=== PATIENT | female | born 1995 | race Caucasian/White ===

== ENCOUNTER 2017-09-12 11:25 | Observation (INO) | payer OTHER ==
[2017-09-12] MEDS ORDERED: ONDANSETRON 4 MG/2 ML VIAL ONE ×2 (11:34→14:38)
[2017-09-12] MEDS ORDERED: ONDANSETRON 4 MG/2 ML VIAL IVP ONE (11:36)
[2017-09-12] MEDS ORDERED: NS 1,000 ML IV ONE ×3 (11:37→13:06)
[2017-09-12 11:55] LABS: PLATELET COUNT 275 10^3/uL (150-400)
--- NOTE | 2017-09-12 12:03 | EDPHY ---
H & P Stated Complaint: periumbilical abd pain n/v/d since 0400 Time Seen by Provider: 09/12/17 11:50 HPI/ROS: CHIEF COMPLAINT: Abdominal pain nausea vomiting diarrhea HISTORY OF PRESENT ILLNESS: 22-year-old female complaining of periumbilical and right lower quadrant abdominal pain since 4:00 a.m. Today with associated not vomiting and diarrhea. Positive alcohol use last evening. No melena or hematochezia pain. No antecedent symptoms. No back or flank pain. No fever or chills. Last oral intake at 3:30 a.m. Today. REVIEW OF SYSTEMS: A ten point review of systems was performed and is negative with the exception of the items mentioned in the HPI PAST MEDICAL & SURGICAL HISTORY: No pertinent medical or surgical history SOCIAL HISTORY: Positive for alcohol use last evening PHYSICAL EXAM (Prior to examination, patient consented to physical exam, hands were washed and my usual and customary physical exam procedures followed) 1) GENERAL: Well-developed, well-nourished, alert and oriented. Appears uncomfortable. 2) HEAD: Normocephalic, atraumatic 3) HEENT: Pupils equal, round, reactive to light bilaterally. Sclera anicteric. Nasopharynx, oropharynx, clear, no lesions. Moist mucous membranes Ears bilaterally with normal tympanic membranes. 4) NECK: Full range of motion, no meningeal signs. 5) LUNGS: Clear auscultation bilaterally, no wheezes, no rhonchi, no retractions. 6) HEART: Regular rate and rhythm, no murmur, no heave, no gallop. 7) ABDOMEN: Guarding abdomen tender to palpation right lower quadrant. Negative Pat's negative peritoneal sign negative epigastric pain., 8) MUSCULOSKELETAL: Moving all extremities, no focal areas of tenderness, no obvious trauma. No peripheral edema or discoloration. 9) BACK: No CVA tenderness, no midline vertebral tenderness, no fluctuance, no step-off, no obvious trauma, no visual or palpable abnormality. 10) SKIN: No rash, no petechiae. 11) Psychiatric: Patient is oriented X 3, there is no agitation. DIFFERENTIAL DIAGNOSIS: My differential diagnosis includes, but is not limited to, acute appendicitis, acute cholecystitis, bowel obstruction, acute pancreatitis, ovarian torsion, ectopic , gastritis and urinary tract infection. The patient understands that this diagnosis is provisional and can never be 100% accurate. This is a partial list of diagnoses considered. These considerations are based on history, physical exam, past history and reassessment. - Personal History LMP (Females 10-55): 22-28 Days Ago Current Tetanus/Diphtheria Vaccine: Yes - Medical/Surgical History Hx Asthma: No Hx Chronic Respiratory Disease: No Hx Diabetes: No Hx Cardiac Disease: No Hx Renal Disease: No Hx Cirrhosis: No Hx Alcoholism: No Hx HIV/AIDS: No Hx Splenectomy or Spleen Trauma: No Other PMH: denies - Social History Smoking Status: Never smoked Constitutional: Initial Vital Signs Temperature (C) 36.7 C 09/12/17 11:26 Heart Rate 67 09/12/17 11:26 Respiratory Rate 17 09/12/17 11:26 Blood Pressure 113/73 09/12/17 11:26 O2 Sat (%) 96 09/12/17 11:26 O2 Delivery Mode Room Air Allergies/Adverse Reactions: No Known Allergies Allergy (Unverified 09/12/17 11:26) Home Medications: Medication Instructions Recorded Acetaminophen [Tylenol ES 500 mg 1,000 mg PO Q8H tab 09/13/17 (*)] HYDROmorphone HCL/NS 2 - 4 mg PO Q4HRS PRN #5 syr 09/13/17 [HYDROmorphone] Ketorolac Tromethamine [Toradol 15 10 mg PO Q6HRS #12 vial 09/13/17 mg/ml Inj (*)] Medical Decision Making ED Course/Re-evaluation: 12:03 p.m.: Will obtain ultrasonographic imaging of the abdomen and pelvis. Patient remains NPO since 3:30 a.m. Today. 12:58 p.m.: Ultrasonographic imaging interpreted by radiologist conveyed to me at this time is positive for appendicitis. Patient will be given IV ceftriaxone and Flagyl, surgeon will be contacted. Care of patient under supervision of secondary supervising physician Dr Abreu with whom I discused case . 1:02 p.m.: Phone consultation with Dr. Odom who will evaluate patient plan for operating room - Data Points Laboratory Results: Laboratory Results 09/12/17 11:40 09/12/17 11:40 Medications Given: Discontinued Medications Acetaminophen (Tylenol) 1,000 mg PO Q8H [facility] Stop: 03/11/18 15:44 Last Admin: 09/13/17 15:16 Dose: 1,000 mg Cefazolin Sodium (Ancef Syringe) Confirm Administered Dose 1 gm .ROUTE .STK-MED ONE Stop: 09/12/17 13:25 Last Admin: 09/12/17 14:41 Dose: 1 gm Fentanyl (Sublimaze) 25 - 100 mcg IVP Q5M PRN PRN Reason: PACU, IMMEDIATE Pain control Stop: 09/12/17 15:42 Last Admin: 09/12/17 16:02 Dose: 25 mcg Heparin Sodium (Porcine) (Heparin Sc Injection) Confirm Administered Dose 5,000 unit .ROUTE .STK-MED ONE Stop: 09/12/17 13:25 Last Admin: 09/12/17 14:41 Dose: 5,000 unit Hydromorphone HCl (Dilaudid) 1 mg IVP EDNOW ONE Stop: 09/12/17 12:54 Last Admin: 09/12/17 12:55 Dose: 1 mg Hydromorphone/Sodium Chloride (Hydromorphone) 0.2 - 0.4 mg IVP Q1HR PRN PRN Reason: Pain, Breakthrough Stop: 09/22/17 15:38 Last Admin: 09/13/17 15:16 Dose: 0.2 mg Sodium Chloride (Ns) 1,000 mls @ 0 mls/hr IV ONCE ONE PRN Reason: Wide Open Stop: 09/12/17 11:38 Last Admin: 09/12/17 11:39 Dose: 1,000 mls Sodium Chloride (Ns) 1,000 mls @ 0 mls/hr IV ONCE ONE PRN Reason: Wide Open Stop: 09/12/17 12:04 Last Admin: 09/12/17 12:14 Dose: 1,000 mls Ceftriaxone Sodium/Dextrose (Rocephin 1 Gm (Premix)) 50 mls @ 100 mls/hr IV EDNOW ONE PRN Reason: Protocol Stop: 09/12/17 13:27 Last Admin: 09/12/17 13:01 Dose: 50 mls Metronidazole/Sodium Chloride (Flagyl 500 Mg (Premix)) 100 mls @ 100 mls/hr IV EDNOW ONE PRN Reason: Protocol Stop: 09/12/17 13:57 Last Admin: 09/12/17 13:03 Dose: 100 mls Lactated Ringer's (Lr) 1,000 mls @ 0 mls/hr IV ONCE ONE; TKO PRN Reason: Protocol Stop: 09/12/17 14:24 Last Admin: 09/12/17 17:23 Dose: Not Given Lactated Ringer's (Lr) 1,000 mls @ 100 mls/hr IV CONT AYDIN Stop: 03/11/18 15:59 Last Admin: 09/13/17 04:11 Dose: 1,000 mls Ketorolac Tromethamine (Toradol) 30 mg IVP Q6HRS AYDIN Stop: 09/17/17 17:59 Last Admin: 09/13/17 11:51 Dose: 30 mg Morphine Sulfate (Morphine) 4 mg IVP EDNOW ONE Stop: 09/12/17 12:04 Last Admin: 09/12/17 12:14 Dose: 4 mg Ondansetron HCl (Zofran) 4 mg IVP EDNOW ONE Stop: 09/12/17 11:37 Last Admin: 09/12/17 11:37 Dose: 4 mg Ondansetron HCl (Zofran) 4 mg IVP Q4HRS PRN PRN Reason: *Nausea &/or Vomiting Stop: 09/13/17 15:38 Last Admin: 09/12/17 18:02 Dose: 4 mg Departure - Departure Disposition: [facility] Acute Clinical Impression: Acute appendicitis Qualifiers: Acute appendicitis type: with localized peritonitis Qualified Code(s): K35.3 - Acute appendicitis with localized peritonitis Condition: Good
[2017-09-12] MEDS ORDERED: HYDROmorphONE/DILAUDID 1 MG/ML INJ IVP ONE (12:53)
[2017-09-12] MEDS ORDERED: HYDROmorphONE/DILAUDID 2 MG/ML INJ ONE (12:54)
[2017-09-12] MEDS ORDERED: ceFAZolin 1 GM/5 ML SYR ONE (13:24)
[2017-09-12] MEDS ORDERED: HEPARIN 5,000 UNIT/0.5 ML SYR ONE (13:24)
[2017-09-12] MEDS ORDERED: PROPOFOL 200 MG/20 ML VIAL ONE ×2 (14:15)
[2017-09-12] MEDS ORDERED: fentaNYL 100 MCG/2 ML INJ ONE ×2 (14:15→15:41)
[2017-09-12] MEDS ORDERED: MIDAZOLAM 2 MG/2 ML VIAL ONE ×2 (14:15→14:37)
[2017-09-12] MEDS ORDERED: LR 1,000 ML IV ONE (14:23)
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
[2017-09-12] MEDS ORDERED: SUGAMMADEX SODIUM 200 MG/2 ML VIAL IVP ONE (14:38)
[2017-09-12] MEDS ORDERED: KETOROLAC 30 MG/1 ML SDV ONE (14:38)
[2017-09-12] MEDS ORDERED: RANITIDINE 50 MG/2 ML VIAL ONE (14:38)
[2017-09-12] MEDS ORDERED: ROCURONIUM 50 MG/5 ML VIAL ONE (14:38)
[2017-09-12] MEDS ORDERED: METOCLOPRAMIDE 10 MG/2 ML VIAL ONE (14:38)
[2017-09-12] MEDS ORDERED: LIDOCAINE 2% 5 ML SDV ONE (14:38)
[2017-09-12] MEDS ORDERED: MEPERIDINE 25 MG/ML SYR IVP PRN (14:41)
[2017-09-12] MEDS ORDERED: ALBUTEROL 3 ML DEYVIAL IH PRN (14:41)
[2017-09-12] MEDS ORDERED: METOCLOPRAMIDE 10 MG/2 ML VIAL IVP PRN (14:41)
[2017-09-12] MEDS ORDERED: DIAZEPAM 5 MG/ML 1 ML SYR IVP PRN (14:41)
[2017-09-12] MEDS ORDERED: NALOXONE HCL 0.4 MG/ML INJ IVP PRN (14:41)
[2017-09-12] MEDS ORDERED: LR 500 ML IV PRN (14:41)
[2017-09-12] MEDS ORDERED: ONDANSETRON 4 MG/2 ML VIAL IVP PRN ×2 (14:41→15:39)
[2017-09-12] MEDS ORDERED: PROMETHAZINE HCL 25 MG/ML INJ IVP PRN (14:41)
[2017-09-12] MEDS ORDERED: DEXAMETHASONE 4 MG/ML VIAL IVP PRN (14:41)
--- NOTE | 2017-09-12 14:41 | PDANEPAE ---
ANE Past Medical History - Pulmonary History Hx Oxygen in Use at Home: No Hx Sleep Apnea: No - Endocrine History Hx Diabetes: No ANE Review of Systems Review of Systems: ANE Patient History - Allergies Allergies/Adverse Reactions: No Known Allergies Allergy (Unverified 09/12/17 11:26) - Home Medications Home Medications: NK [No Known Home Meds] 09/12/17 [Last Taken Unknown] - NPO status NPO Since - Liquids (Date): 09/12/17 NPO Since - Liquids (Time): 08:30 NPO Since - Solids (Date): 09/11/17 NPO Since - Solids (Time): 17:00 - Smoking Hx Smoking Status: Never smoked ANE Labs/Vital Signs - Labs Result Diagrams: 09/12/17 11:40 09/12/17 11:40 - Vital Signs Blood Pressure: 121/66 Heart Rate: 75 Respiratory Rate: 16 O2 Sat (%): 99 Height: 175.26 cm Weight: 61.235 kg ANE Physical Exam - Airway Neck exam: FROM Mallampati Score: Class 1 Mouth exam: normal dental/mouth exam - Pulmonary Pulmonary: no respiratory distress, no rales or rhonchi, clear to auscultation - Cardiovascular Cardiovascular: regular rate and rhythym, no murmur, rub, or gallop - ASA Status ASA Status: I, II, E
[2017-09-12] MEDS ORDERED: HYDROmorphone HCL/NS 0.5 MG/ML SYR IVP PRN (15:39)
[2017-09-12] MEDS: fentaNYL 100 MCG/2 ML INJ IVP PRN ×2 (15:43→16:02)
--- NOTE | 2017-09-12 16:02 | POSTOPPROG ---
Post Op Note Date of Operation: 09/12/17 Surgeon: Carlo Odom Anesthesia: GET(General Endotracheal) Pre-op Diagnosis: acute appendicitis Post-op Diagnosis: acute unruptured appendicitis Indication: acute appendicitis Procedure: laparoscopic appendectomy Findings: acute unruptured appendicitis Inf/Abcess present in the surg proc area at time of surgery?: No EBL: Minimal Total fluids administered: 1000 Complications: none Specimen(s): appendix
--- NOTE | 2017-09-12 17:12 | GOP ---
[f rep st] OPERATIVE REPORT DATE OF OPERATION: 09/12/2017 SURGEON: Carlo Odom MD ANESTHESIA: General endotracheal. PREOPERATIVE DIAGNOSIS: Acute appendicitis by ultrasound, laboratories, and physical examination. POSTOPERATIVE DIAGNOSIS: Acute unruptured appendicitis with mesenteric adenitis. PROCEDURE PERFORMED: Laparoscopic appendectomy. FINDINGS: Acute unruptured appendicitis with mesenteric adenitis. INDICATIONS: Acute appendicitis by ultrasound, physical examination, and laboratories. DESCRIPTION OF PROCEDURE: The patient was placed on the operating table in supine position. After induction of adequate general endotracheal anesthesia, the abdomen was carefully prepped and draped. A surgical time-out was carried out and agreed to by all members of the operative team. A curvilinear incision was planned at the umbilicus. Transverse, suprapubic, and oblique left lower quadrant 5 mm incisions were planned. All skin incisions were made sharply. The incision was deepened with Bovie electrocautery. At the infraumbilical curvilinear incision, dissection was continued down to the anterior rectus sheath, which was elevated between 2 Allis clamps. The fascia was divided in the midline. A pursestring of #0 PDS was placed. The peritoneum was entered. An 11-12 mm disposable Fabrice trocar was positioned. Intraabdominal insufflation was carried out to 15 mmHg. She was placed in a 25-degree Trendelenburg position. A 5 mm port was placed through the left lower quadrant incision. A 5 mm port was then placed through the suprapubic incision. She was now rotated 5 degrees to the left. The appendix was easily identified. It was elevated. The mesoappendix was divided with the Harmonic scalpel down to its base on the cecum. The cecum was cleared circumferentially. A 35 mm Endo-TELLO stapler was used to transect the cecum, taking a cuff of tissue with the appendix. The appendix was placed in an EndoCatch bag and delivered via the umbilical port site. Pneumoperitoneum was re-established. Heparin and Ancef-containing irrigant was used. Photographic documentation of the appendix, the stapled resection line, and the right and left ovary was carried out. The small bowel was run for a distance of 3 feet. There is some mesenteric adenitis identified. There was no Meckel diverticulum. The patient tolerated the procedure well. The ports were removed under direct vision. An inverted simple suture of #0 PDS was placed at the midpoint of the infraumbilical midline incision and tied. The pursestring was now tied. The subcutaneous tissue was well irrigated with heparin and Ancef-containing irrigant. The skin was closed at all 3 sites with inverted simple sutures of #4-0 Vicryl. Mastisol and Steri-Strips were placed. Band-Aids were positioned. The patient was transferred to recovery in stable and satisfactory condition. /[id number]/MODL MTDD
[2017-09-12] MEDS: ACETAMINOPHEN 500 MG TAB PO SCH ×2 (17:23→23:30)
[2017-09-12] MEDS: KETOROLAC 15 MG/1 ML SDV IVP SCH ×2 (18:01→23:30)
[2017-09-12] MEDS: LR 1,000 ML IV SCH (18:02)
[2017-09-13] MEDS: LR 1,000 ML IV SCH (04:11)
[2017-09-13] MEDS: KETOROLAC 15 MG/1 ML SDV IVP SCH ×2 (05:02→11:51)
--- NOTE | 2017-09-13 09:22 | SOAPPROG ---
SOAP Progress Note Assessment/Plan: 09/13/17 09:19 POD#! Assessment: doing quite well. passing flatus. eating and pain well controlled Plan: Discharge today Subjective: I'm feeling much better Objective: Vital Signs Temp Pulse Resp BP Pulse Ox 36.4 C 71 16 112/57 L 96 09/13/17 07:25 09/13/17 07:25 09/13/17 07:25 09/13/17 07:25 09/13/17 07:25 09/12/17 09/13/17 09/14/17 05:59 05:59 05:59 Intake Total 5610 Output Total 755 Balance 4855 - Pending Discharge Pending Discharge Within 24 Hours: Yes Pending Discharge Date: 09/13/17 Pending Discharge Time: 11:00 Physical Exam - Physical Exam General Appearance: WD/WN, alert, no apparent distress Neck: non-tender, full range of motion, supple, normal inspection Respiratory: chest non-tender, lungs clear, normal breath sounds Cardiac/Chest: regular rate, rhythm Abdomen: normal bowel sounds, non-tender, soft, other (Incisions clean and dry) Pelvic Exam: deferred Rectal: deferred Back: Normal inspection Skin: normal color, warm/dry Neuro/Psych: no motor/sensory deficits, alert, normal mood/affect, oriented x 3 ICD10 Worksheet Patient Problems: Problems Problem Status Onset Acute appendicitis Acute
[2017-09-13] MEDS: ACETAMINOPHEN 500 MG TAB PO SCH ×2 (09:31→15:16)
--- NOTE | 2017-09-13 11:50 | GDS ---
[f rep st] DISCHARGE SUMMARY DISCHARGE DIAGNOSIS: Acute unruptured appendicitis. CONDITION AT DISCHARGE: Improved. DISPOSITION: Home. SURGERY: Laparoscopic appendectomy. MEDICATIONS: She is to take Tylenol 1000 mg every 8 hours by the clock, Toradol 10 mg p.o. every 6 hours for 12 doses and then substitute Motrin 200 mg every 6 hours. For severe pain, she is given Dilaudid 2 mg, she is to take 1-2 every 4 hours, 5 per dispensed. She will take a multivitamin with zinc with 100 % of the RDAs of zinc, copper and C daily. ACTIVITY: She is not to return to work for 3 weeks. She is to limit activities to gentle walking. She is to shower only. She is to lift less than 10 pounds. She is to keep her Steri-Strips in place. For 3 weeks, she is to watch for signs of infection. Signs of superficial infection would include redness, warmth, swelling, and tenderness. Signs of deep space infection would be fevers, chills, malaise or loss of appetite. FOLLOWUP: She will follow up with Dr. Massimo Moreno, Dr. Mirna Pires, or Dr. Ritesh Soliman in 2 weeks. She will call to make an appointment. HOSPITAL COURSE: The patient was admitted and taken to the operating room where the above-mentioned surgery was undertaken. She has done quite well. On postop day 1, she is passing gas, eating and her pain is well controlled. The incisions are clean and dry. She is set for discharge. /[id number]/MODL MTDD
[2017-09-13 15:40] VITALS: BP 103/63
--- NOTE | 2017-09-16 16:25 | POSTANESTH ---
Post Anesthetic Evaluation Cardiovascular Status: Normal, Stable Respiratory Status: Normal, Stable Level of Consciousness/Mental Status: Can Participate in Eval Pain Control: Adequate, Prn Tx Ordered Nausea/Vomiting Control: Adequate, Prn Tx Ordered Complications Possibly Related to Anesthesia: None Noted
== END 2017-09-13 17:19 | disposition home or self-care (01) ==
LOC: F3E 16:40
PROVIDERS: ADMIT Surgery; ATTEND Surgery
PROC: 0DTJ4ZZ Resection of Appendix, Percutaneous Endoscopic Approach (ICD-10-PCS; principal; 2017-09-12 14:00)
DX: K35.80 Unspecified acute appendicitis (principal)
CPT/HCPCS: 96365; G0378; G0480; J0696; J1170; J1644; J1885; J2250; J2270; J2405; J2704; J2765; J2780; J3010

== ENCOUNTER 2018-05-14 08:53 | Emergency (ER) | payer OTHER ==
[2018-05-14] MEDS ORDERED: NS 1,000 ML IV ONE (09:46)
[2018-05-14] MEDS ORDERED: fentaNYL 100 MCG/2 ML INJ IVP ONE (09:50)
[2018-05-14] MEDS ORDERED: ONDANSETRON 4 MG/2 ML VIAL IVP ONE ×2 (09:50→11:16)
--- NOTE | 2018-05-14 09:56 | EDPHY ---
HPI/HX/ROS/PE/MDM Narrative: CLINICAL IMPRESSION: Left lower quadrant abdominal pain and dysuria ASSESSMENT/PLAN: 22-year-old female presents to the emergency department with 3 days of subjective dysuria, left lower quadrant and left flank pain. Patient arrives tachycardic and hypotensive however vital signs on initial repeat evaluations have all been stable. She is afebrile. Abdomen is tender but without rigidity , guarding or focal peritoneal findings. Urine shows no suggestion of UTI or pyelonephritis. No hematuria. She is not . She has no leukocytosis, renal insufficiency, electrolyte imbalance or metabolic disturbance. Pelvic ultrasound shows no evidence of ovarian torsion, ovarian cyst, TOA, or salpingitis. Pelvic exam with no cervical motion tenderness, adnexal fullness or pain, or abnormal vaginal discharge. Wet prep swabs and STD test were obtained and patient prefers to be discharged home and await call back with these results. I encouraged follow-up with OBGYN which she reports she has scheduled. No clinical suspicion for acute surgical process today. Warning signs return to ED sooner outlined in person and discharge papers. DIFFERENTIAL DX: Abdominal pain includes but not limited to urinary tract infection, pyelonephritis, infection, ectopic , salpingitis, TOA, ovarian torsion, ovarian cyst, endometriosis, uterine fibroids, acute appendicitis, acute diverticulitis, small-bowel obstruction, constipation ED PROCEDURES: See lab results below ED COURSE: Patient reassessed, pain improved. Although she still has pain. Pelvic ultrasound shows no acute abnormality. Labs reassuring, no evidence of UTI or pyelonephritis. Patient now stating that her vagina hurts. Would like pelvic swabs I explained that we will not get results back same day and would be happy to call her. Patient is comfortable with this plan. Abdomen soft with no focal peritoneal findings or suggestion of acute surgical process. CHIEF COMPLAINT: Abdominal pain, nausea, vomiting HPI: 22-year-old female with past medical history of frequent UTIs presents to the emergency department reporting that she had a UTI 3 days ago. She did not seek medical attention for this and has not taken medication for it. Over the last 24 hr she has developed nausea, vomiting, increased left lower pelvic pain and left flank pain. She states she no longer has dysuria or urgency. No abnormal vaginal discharge and she denies risk of STIs. She denies . She finished her menstrual cycle 4 days ago. No intercourse recently or painful intercourse. No known history of abnormal gynecologic conditions including ovarian cyst, endometriosis, uterine fibroids. She reports subjective fevers and chills but does not have a thermometer. She has not seen a primary care provider. She does not regularly treat her urinary tract infections. She reports she does have a history of pyelonephritis in the past. Her only other abdominal surgery has been a prior appendectomy. She reports normal bowel movements with no visible blood. No hematemesis. She has not had any food or liquids since last night secondary to vomiting. PMH: Chronic UTIs Pertinent Past Surgical History: Prior appendectomy Family History: None reported Social History: Nonsmoker, does not drink alcohol regularly REVIEW OF SYSTEMS: All other systems negative Constitutional: Subjective fever and chills, positive appetite change. ENT: No sore throat, congestion, ear pain. Cardiovascular: No chest pain, no palpitations. Respiratory: No cough, no shortness of breath. Gastrointestinal: Positive abdominal pain and vomiting, no diarrhea. Genitourinary: No hematuria, dysuria, positive left-sided flank pain, positive left-sided pelvic pain Musculoskeletal: Positive left-sided back pain, joint swelling, joint pain, myalgias. Skin: No rashes, color change. Neurological: No headache, dizziness, weakness. PHYSICAL EXAM: General Appearance: Alert, oriented, appropriate, cooperative, NAD, well hydrated, non-toxic appearing, initially tachycardic and hypotensive on arrival , repeat vital signs by myself show heart rate and 94, blood pressure at 100 systolic no hypoxia. HEENT: Oropharynx clear is no erythema or exudates, no tonsillar hypertrophy or asymmetry. Dentition without abnormality. Neck: Supple, nontender, no lymphadenopathy, no midline pain, FROM, no meningismus. Respiratory: There are no retractions, lungs are clear to auscultation. Cardiac: Regular rate and rhythm, no murmurs or gallops. Gastrointestinal: Abdomen is soft, tender palpation left lower quadrant radiating to left flank, bowel sounds hypoactive no masses/hernia, no rigidity, guarding or focal peritoneal findings. exam performed with pearl glue drier Lorie in the room. Vaginal canal without abnormality, no cervical motion tenderness, no abnormal vaginal discharge. No adnexal tenderness or mass on bimanual exam. Neurological: Alert and oriented x 3, CN 2-12 grossly intact Skin: Warm, dry, no rashes, no nodules on palpation. Musculoskeletal: Extremities are symmetrical, full range of motion, no tenderness, deformity, swelling, or erythema. Psychiatric: Patient is oriented X 3, there is no agitation. MEDICAL DECISION MAKING: Patient was seen independently. Secondary supervising physician at time of evaluation was Dr. Rice. Diagnosis: Dysuria, left lower quadrant abdominal pain. New, requires workup Summary: See Assessment and Plan for summary of ED visit Clinical lab tests: ordered / reviewed. Independent visualization of images, tracing, or specimens: Yes. Patient Progress: Stable. - Data Points Imaging Results: Imaging Impressions Pelvic/Renal Ultrasound 05/14/18 11:30 Impression: Normal pelvic ultrasound. Findings discussed with Miles Owens 05/14/2018 at 12:51. Laboratory Results: Laboratory Results 05/14/18 09:45 05/14/18 09:45 05/14/18 05/14/18 05/14/18 11:07 09:45 09:45 WBC RBC Hgb Hct MCV MCH MCHC RDW Plt Count MPV Neut % (Auto) Lymph % (Auto) [place] % (Auto) Eos % (Auto) Baso % (Auto) Nucleat RBC Rel Count Absolute Neuts (auto) Absolute Lymphs (auto) Absolute Monos (auto) Absolute Eos (auto) Absolute Basos (auto) Absolute Nucleated RBC Immature Gran % Immature Gran # RBC/WBC/PLT Morphology Platelet Estimate Sodium 139 mEq/L mEq/L (135-145) Potassium 4.3 mEq/L mEq/L (3.5-5.2) Chloride 109 mEq/L mEq/L (97-110) Carbon Dioxide 23 mEq/l mEq/l (22-31) Anion Gap 7 mEq/L mEq/L (6-14) BUN 12 mg/dL mg/dL (7-23) Creatinine 0.8 mg/dL mg/dL (0.6-1.0) Estimated GFR > 60 Glucose 98 mg/dL mg/dL (70-100) Calcium 9.0 mg/dL mg/dL (8.5-10.4) Beta HCG, Qual NEGATIVE Urine Color YELLOW Urine Appearance CLEAR Urine pH 8.0 H (5.0-7.5) Ur Specific [place] 1.020 (1.002-1.030) Urine Protein 1+ H (NEGATIVE) Urine Ketones TRACE H (NEGATIVE) Urine Blood NEGATIVE (NEGATIVE) Urine Nitrate NEGATIVE (NEGATIVE) Urine Bilirubin NEGATIVE (NEGATIVE) Urine Urobilinogen NEGATIVE EU EU (0.2-1.0) Ur Leukocyte Esterase NEGATIVE (NEGATIVE) Urine RBC 1-3 /hpf /hpf (0-3) Urine WBC 1-3 /hpf /hpf (0-3) Ur Epithelial Cells TRACE /lpf /lpf (NONE-1+) Urine Glucose NEGATIVE (NEGATIVE) 05/14/18 09:45 WBC 8.56 10^3/uL 10^3/uL (3.80-9.50) RBC 4.54 10^6/uL 10^6/uL (4.18-5.33) Hgb 13.2 g/dL g/dL (12.6-16.3) Hct 39.2 % % (38.0-47.0) MCV 86.3 fL fL (81.5-99.8) MCH 29.1 pg pg (27.9-34.1) MCHC 33.7 g/dL g/dL (32.4-36.7) RDW 12.5 % % (11.5-15.2) Plt Count 316 10^3/uL 10^3/uL (150-400) MPV 9.7 fL fL (8.7-11.7) Neut % (Auto) 88.2 % H % (39.3-74.2) Lymph % (Auto) 6.3 % L % (15.0-45.0) Quay % (Auto) 4.3 % L % (4.5-13.0) Eos % (Auto) 0.6 % % (0.6-7.6) Baso % (Auto) 0.4 % % (0.3-1.7) Nucleat RBC Rel Count 0.0 % % (0.0-0.2) Absolute Neuts (auto) 7.55 10^3/uL H 10^3/uL (1.70-6.50) Absolute Lymphs (auto) 0.54 10^3/uL L 10^3/uL (1.00-3.00) Absolute Monos (auto) 0.37 10^3/uL 10^3/uL (0.30-0.80) Absolute Eos (auto) 0.05 10^3/uL 10^3/uL (0.03-0.40) Absolute Basos (auto) 0.03 10^3/uL 10^3/uL (0.02-0.10) Absolute Nucleated RBC 0.00 10^3/uL 10^3/uL (0-0.01) Immature Gran % 0.2 % % (0.0-1.1) Immature Gran # 0.02 10^3/uL 10^3/uL (0.00-0.10) RBC/WBC/PLT Morphology TNP Platelet Estimate TNP Sodium Potassium Chloride Carbon Dioxide Anion Gap BUN Creatinine Estimated GFR Glucose Calcium Beta HCG, Qual Urine Color Urine Appearance Urine pH Ur Specific [place] Urine Protein Urine Ketones Urine Blood Urine Nitrate Urine Bilirubin Urine Urobilinogen Ur Leukocyte Esterase Urine RBC Urine WBC Ur Epithelial Cells Urine Glucose Medications Given: Discontinued Medications Fentanyl (Sublimaze) 50 mcg IVP EDNOW ONE Stop: 05/14/18 09:51 Last Admin: 05/14/18 09:59 Dose: 50 mcg Sodium Chloride (Ns) 1,000 mls @ 0 mls/hr IV EDNOW ONE; Wide Open PRN Reason: Protocol Stop: 05/14/18 09:47 Last Admin: 05/14/18 09:47 Dose: 1,000 mls Ketorolac Tromethamine (Toradol) 15 mg IVP EDNOW ONE Stop: 05/14/18 11:17 Last Admin: 05/14/18 11:26 Dose: 15 mg Ondansetron HCl (Zofran) 4 mg IVP EDNOW ONE Stop: 05/14/18 09:51 Last Admin: 05/14/18 09:59 Dose: 4 mg Ondansetron HCl (Zofran) 4 mg IVP EDNOW ONE Stop: 05/14/18 11:17 Last Admin: 12/19/18 11:26 Dose: 4 mg General Time Seen by Provider: 05/14/18 09:25 Initial Vital Signs: Initial Vital Signs Temperature (C) 36.9 C 05/14/18 09:05 Heart Rate 120 H 05/14/18 09:05 Respiratory Rate 16 05/14/18 09:05 Blood Pressure 94/73 L 05/14/18 09:05 O2 Sat (%) 96 05/14/18 09:05 O2 Delivery Mode Room Air Allergies/Adverse Reactions: No Known Allergies Allergy (Unverified 05/14/18 09:04) Departure - Departure Disposition: Home, Routine, Self-Care Clinical Impression: Abdominal pain Qualifiers: Abdominal location: left lower quadrant Qualified Code(s): R10.32 - Left lower quadrant pain Condition: Fair Instructions: Acute Abdominal Pain (ED) Additional Instructions: DISCHARGE INSTRUCTIONS FROM YOUR DOCTOR Thank you for visiting our emergency department today. Please keep in mind that discharge from the emergency department does not mean that there is nothing wrong - it simply means that we have not identified an emergency condition that requires further evaluation or treatment in the hospital. You should always plan to follow up with primary care for re-evaluation of your condition in the next 2-3 days. If you have been referred to a specialist, please call as soon as possible (today or tomorrow) to schedule your follow up appointment at the appropriate time. You have no evidence of a urinary tract infection or pyelonephritis today. Labs are reassuring. Normal white blood count. Normal kidney function and electrolytes. Pelvic ultrasound was also normal with no evidence of ovarian cyst or other abnormality. Vaginal swabs including STD tests are pending and we will call you in 24-48 hours with these. Please stay well-hydrated, drink plenty of fluids, advance diet as tolerated. Use ibuprofen or Tylenol if needed for pain. Follow up with a primary care provider. Return to the emergency department for worsening pain, fever, chills, vomiting, abdominal distention, inability to have bowel movement or pass gas, or any other concern. People present with illnesses and injuries in different ways, and it is always possible that we have missed something. You may always return for re-evaluation if symptoms worsen or if they are not improving or if you develop new/different symptoms. Again, thank you for choosing our emergency department. We hope that you feel better. Referrals: NONE *PRIMARY CARE P,. [Primary Care Provider] - As per Instructions Lennox Castellanos DO [Doctor of Osteopathy] - As per Instructions
[2018-05-14 10:05] LABS: PLATELET COUNT 316 10^3/uL (150-400)
[2018-05-14] MEDS ORDERED: KETOROLAC 15 MG/1 ML SDV IVP ONE (11:16)
[2018-05-14 13:55] VITALS: BP 93/60
[2018-05-15 11:16] LABS: GC AMPLIFICATION GENPROBE NEGATIVE (NEGATIVE)
== END 2018-05-14 14:01 | disposition home or self-care (01) ==
DX: R10.32 Left lower quadrant pain (principal); E86.9 Volume depletion, unspecified; Z87.440 Personal history of urinary (tract) infections
CPT/HCPCS: 96374; J1885; J2405; J3010

== ENCOUNTER 2018-07-16 05:02 | Emergency (ER) | payer OTHER, MEDICAID ==
--- NOTE | 2018-07-16 05:26 | EDPHY ---
H & P Stated Complaint: on going UTI- antibiotics not helphing Time Seen by Provider: 07/16/18 05:11 HPI/ROS: Chief Complaint: UTI, vaginal burning HPI: 23-year-old G0 woman presenting with burning with urination and vaginal burning for several days. Patient was diagnosed with UTI started on antibiotics a week ago. Symptoms are not improving so she was seen again yesterday. She started on nitrofurantoin and. EM. She is continuing to have urinary urgency and frequency and vaginal burning. Last menstrual cycle was about 3 weeks ago. She is sexually active. No history of STIs in the past. One partner. She has been tested for STIs in the past. She has not had any increasing vaginal discharge. She has also been complaining of some sore throat , some subjective body aches, some fusion chills. She is taking some ibuprofen which is helping with continuing have some general discomfort. No nausea or vomiting. ROS: 10 systems were reviewed and were negative except those elements noted in the HPI. PMH: Frequent UTIs Social History: No smoking, no alcohol, no recreational drug use Family History: non-contributory Physical Exam: Gen: Awake, Alert, No Distress HEENT: Nose: no rhinorrhea Eyes: PERRLA, EOMI Mouth: Moist mucosa Neck: Supple, no JVD Chest: nontender, lungs clear to auscultation Heart: S1, S2 normal, no murmur Abd: Soft, non-tender, no guarding Back: no CVA tenderness, no midline tenderness Ext: no edema, non-tender Skin: no rash Neuro: CN II-XII intact, Sensation grossly intact, Strength 5/5 in bilateral upper and lower extremities - Personal History LMP (Females 10-55): 15-21 Days Ago Current Tetanus Diphtheria and Acellular Pertussis (TDAP): Yes - Medical/Surgical History Hx Asthma: No Hx Chronic Respiratory Disease: No Hx Diabetes: No Hx Cardiac Disease: No Hx Renal Disease: No Hx Cirrhosis: No Hx Alcoholism: No Hx HIV/AIDS: No Hx Splenectomy or Spleen Trauma: No Other PMH: UTIs, appy, - Social History Smoking Status: Never smoked Constitutional: Initial Vital Signs Temperature (C) 37.8 C 07/16/18 05:06 Heart Rate 93 07/16/18 05:06 Respiratory Rate 20 07/16/18 05:06 Blood Pressure 118/77 07/16/18 05:06 O2 Sat (%) 98 07/16/18 05:06 O2 Delivery Mode Room Air Allergies/Adverse Reactions: No Known Allergies Allergy (Unverified 07/16/18 05:05) Home Medications: Medication Instructions Recorded Fluconazole 07/16/18 Fluconazole [Diflucan (*)] 150 mg PO ONCE #1 tab 07/16/18 Hydrocodone/Acetaminophen 1 - 2 each PO Q4-6PRN PRN #10 07/16/18 [Hydrocodon-Acetaminophen 5-325] tablet Nitrofurantoin [place]-Macrocrystal 07/16/18 Medical Decision Making ED Course/Re-evaluation: 23-year-old with UTI symptoms. She has not have any CVA tenderness. She is not toxic in appearance. She is afebrile and vital signs are otherwise normal. Abdomen is soft and benign. She is currently on nitrofurantoin. Will send urinalysis with cultures. Dirty urine to check for GC and Chlamydia although she has not been having any vaginal discharge. She has no adnexal or pelvic pain on examination. Symptoms also likely secondary to Sofia infection secondary to the multiple antibiotics she has been having recently. - Data Points Laboratory Results: 07/16/18 07/16/18 05:30 05:25 Urine Color EVER Urine Appearance HAZY Urine pH 5.0 (5.0-7.5) Ur Specific [place] 1.021 (1.002-1.030) Urine Protein NEGATIVE (NEGATIVE) Urine Ketones 2+ H (NEGATIVE) Urine Blood NEGATIVE (NEGATIVE) Urine Nitrate POSITIVE H (NEGATIVE) Urine Bilirubin NEGATIVE (NEGATIVE) Urine Urobilinogen 2.0 EU H EU (0.2-1.0) Ur Leukocyte Esterase NEGATIVE (NEGATIVE) Urine RBC 1-3 /hpf /hpf (0-3) Urine WBC 10-15 /hpf H /hpf (0-3) Ur Epithelial Cells 2+ /lpf H /lpf (NONE-1+) Urine Bacteria TRACE /hpf H /hpf (NONE SEEN) Urine Mucus 1+ /lpf /lpf (NONE-1+) Urine Glucose NEGATIVE (NEGATIVE) Urine Test NEGATIVE Medications Given: Discontinued Medications Hydrocodone Bitart/Acetaminophen ([place] 5/325) 2 tab PO EDNOW ONE Stop: 07/16/18 05:44 Last Admin: 07/16/18 05:53 Dose: 2 tab Departure - Departure Disposition: Home, Routine, Self-Care Clinical Impression: Urinary tract infection Condition: Good Instructions: Urinary Tract Infection in Women (ED) Additional Instructions: Continue taking your prescribed antibiotics. Follow-up in 2 days for the results of your urine culture results in your sexually transmitted infection results. Follow up at [facility] in 2-3 days for re-evaluation. You may take the Diflucan after you finished her course of antibiotics. Please add a probiotic to your diet daily while taking antibiotics. Referrals: [facility],. [Clinic] - As per Instructions Prescriptions: Fluconazole [Diflucan (*)] 150 mg PO ONCE #1 tab Hydrocodone/Acetaminophen [Hydrocodon-Acetaminophen 5-325] 1 - 2 each PO Q4- 6PRN PRN #10 tablet PRN Reason: Pain, Severe
[2018-07-16] MEDS ORDERED: HYDROCODONE/APAP 5/325 TAB PO ONE (05:43)
[2018-07-16 07:33] VITALS: BP 110/75
[2018-07-17 12:00] LABS: GC AMPLIFICATION GENPROBE NEGATIVE (NEGATIVE)
== END 2018-07-16 07:33 | disposition home or self-care (01) ==
DX: N39.0 Urinary tract infection, site not specified (principal)

== ENCOUNTER 2018-08-15 12:48 | Emergency (ER) | payer MEDICAID, OTHER ==
--- NOTE | 2018-08-15 13:19 | EDPHY ---
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 She states that she was leaning backwards and did a somersault off of the stage and landed on her forehead. She felt slightly dazed but did not lose consciousness. No back pain no neck pain. No weakness, paresthesias or other deficits. No nausea vomiting. Symptoms have gradually improved throughout the night and today. She was also concerned because she has some swelling to the bridge of her nose. No obvious deformity. No nasal bleeding. No vision changes. Headache is resolved. Severity: Moderate Modifying factors: Improving REVIEW OF SYSTEMS: Constitutional: denies: chills, fever, recent illness, recent injury EENTM: See HPI denies: blurred vision, double vision, nose congestion Respiratory: denies: cough, shortness of breath Cardiac: denies: chest pain, irregular heart rate, lightheadedness, palpitations Gastrointestinal/Abdominal: denies: abdominal pain, diarrhea, nausea, vomiting, blood streaked stools Genitourinary: denies: dysuria, frequency, hematuria, pain Musculoskeletal: denies: joint pain, muscle pain Skin: denies: lesions, rash, jaundice, bruising Neurological: See HPI Hematologic/Lymphatic: denies: blood clots, easy bleeding, easy bruising Immunologic/allergic: denies: HIV/AIDS, transplant 10 systems reviewed and negative except as noted EXAM: GENERAL: Well-appearing, well-nourished and in no acute distress. HEAD: Small contusion to forehead, normocephalic. EYES: Pupils equal round and reactive to light, extraocular movements intact, sclera anicteric, conjunctiva are normal. ENT: TMs normal, slight bruising and swelling to nasal bridge. No crepitus. Appears straight and midline. No septal hematoma, oropharynx clear without exudates. Moist mucous membranes. NECK: Normal range of motion, supple without lymphadenopathy or JVD. LUNGS: Breath sounds clear to auscultation bilaterally and equal. No wheezes rales or rhonchi. HEART: Regular rate and rhythm without murmurs, rubs or gallops. ABDOMEN: Soft, nontender, normoactive bowel sounds. No guarding, no rebound. No masses appreciated. BACK: No CVA tenderness, no spinal tenderness, step-offs or deformities EXTREMITIES: Normal range of motion, no pitting or edema. No clubbing or cyanosis. NEUROLOGICAL: Cranial nerves II through XII grossly intact. Normal speech, normal gait. 5/5 strength, normal movement in all extremities, normal sensation , normal reflexes PSYCH: Normal mood, normal affect. SKIN: Warm, dry, normal turgor, no visible rashes or lesions. Source: Patient Exam Limitations: No limitations - Personal History Current Tetanus/Diphtheria Vaccine: Yes - Medical/Surgical History Hx Asthma: No Hx Chronic Respiratory Disease: No Hx Diabetes: No Hx Cardiac Disease: No Hx Renal Disease: No Hx Cirrhosis: No Hx Alcoholism: No Hx HIV/AIDS: No Hx Splenectomy or Spleen Trauma: No Other PMH: UTIs, appy, - Family History Significant Family History: No pertinent family hx - Social History Smoking Status: Never smoked Alcohol Use: None Constitutional: Initial Vital Signs Temperature (C) 36.8 C 08/15/18 12:53 Heart Rate 89 08/15/18 12:53 Respiratory Rate 16 08/15/18 12:53 Blood Pressure 106/69 08/15/18 12:53 O2 Sat (%) 96 08/15/18 12:53 O2 Delivery Mode Room Air Allergies/Adverse Reactions: No Known Allergies Allergy (Verified 08/15/18 12:53) Home Medications: Medication Instructions Recorded Fluconazole 07/16/18 Fluconazole [Diflucan (*)] 150 mg PO ONCE #1 tab 07/16/18 Hydrocodone/Acetaminophen 1 - 2 each PO Q4-6PRN PRN #10 07/16/18 [Hydrocodon-Acetaminophen 5-325] tablet Nitrofurantoin [place]-Macrocrystal 07/16/18 Medical Decision Making ED Course/Re-evaluation: The patient has symptoms consistent with a mild concussion. She does have some bruising and swelling to her nasal bridge bed in not the clinically think that it is broken. I will have her follow up with ENT in case it is abnormal when the swelling resolves. She is breathing through it without difficulty. Discussed concussion and post concussion recovery. Will refer her to concussion Clinic. She is happy with this and declines further workup or testing at this time. She is requesting a note for work. Differential Diagnosis: Partial list of the Differential diagnosis considered include but were not limited to; concussion, contusion, nasal bone fracture and although unlikely based on the history and physical exam, I also considered cervical spine injury , intracranial hemorrhage,. I discussed these differential diagnoses and the plan with the patient as well as the usual and expected course. The patient understands that the diagnosis is provisional and that in medicine we are not always correct and that further workup is often warranted. Usual and customary warnings were given. All of the patient's questions were answered. The patient was instructed to return to the emergency department should the symptoms at all worsen or return, otherwise to followup with the physician as we discussed. Departure - Departure Disposition: Home, Routine, Self-Care Clinical Impression: Concussion Qualifiers: Encounter type: initial encounter Loss of consciousness presence/duration: without LOC Qualified Code(s): S06.0X0A - Concussion without loss of consciousness, initial encounter Condition: Fair Instructions: Concussion (ED) Referrals: NONE *PRIMARY CARE P,. [Primary Care Provider] - As per Instructions Loraine Harden MD [Medical Doctor] - 5-7 days, if not improved Lizy Thompson PA [Physician Instructional Specialist] - As per Instructions Stand Alone Forms: Work Excuse
[2018-08-15 13:35] VITALS: BP 102/82
== END 2018-08-15 13:35 | disposition home or self-care (01) ==
DX: S06.0X0A Concussion without loss of consciousness, initial encounter (principal); W17.89XA Other fall from one level to another, initial encounter; Y93.41 Activity, dancing; Y99.0 Civilian activity done for income or pay